=== PATIENT | male | born 1990 | race Caucasian/White ===

== ENCOUNTER 2017-10-29 19:29 | Inpatient (IN) | payer OTHER ==
[~2017-10-29] VITALS: Ht 182.9 cm; Wt 93.0 kg
[2017-10-29 19:45] VITALS: BP 114/66
[2017-10-29] MEDS ORDERED: NACL 0.9% 1,000 ML IV ONE (21:20)
[2017-10-29] MEDS ORDERED: metroNIDAZOLE 500 MG/NS PREMIX 100 ML IV ONE (21:20)
[2017-10-29] MEDS ORDERED: MORPHINE SULFATE 4 MG/ML SYR IVP ONE (21:20)
[2017-10-29 21:58] LABS: HEMATOCRIT 28.3 % (36-52); HEMOGLOBIN 8.8 g/dL (12.0-18.0); MEAN CORPUSCULAR HEMOGLOBIN 23 pg (27-31); MEAN CORPUSCULAR HGB CONC 31 g/dL (33-37); MEAN CORPUSCULAR VOLUME 72.7 fL (80-94); PLATELET COUNT (AUTO) 601 K/uL (140-450); RED CELL DISTRIBUTION WIDTH 15.6 % (11.6-13.7); WHITE BLOOD COUNT (AUTO) 16.7 K/uL (4.8-10.8)
[2017-10-29 22:02] LABS: ANION GAP 12.2 (8-16); CARBON DIOXIDE 25.2 mmol/L (21-32); CREATININE 0.7 mg/dL (0.7-1.3); POTASSIUM 4.4 mmol/L (3.5-5.1)
[2017-10-29 22:09] LABS: ALBUMIN 1.8 g/dL (3.4-5.0); TOTAL BILIRUBIN 0.2 mg/dL (0.0-1.0)
[2017-10-29 22:31] LABS: LYMPHOCYTES % (MANUAL) 11 % (20-46); MONOCYTES % (MANUAL) 2 % (5-12)
[2017-10-29] MEDS ORDERED: ONDANSETRON 4 MG/2 ML VIAL IVP PRN (22:40)
[2017-10-29] MEDS ORDERED: VANCOMYCIN PER PHARMACY MC PRN (22:40)
[2017-10-29] MEDS ORDERED: ACETAMINOPHEN 325 MG TAB PO PRN (22:40)
[2017-10-29] MEDS ORDERED: MORPHINE SULFATE 2 MG/ML SYR IVP PRN (22:40)
[2017-10-29] MEDS ORDERED: VANCOMYCIN 1GM/DEXT 5% PREMIX 200 ML IV SCH (23:25)
[2017-10-29 23:30] VITALS: BP 126/62
[2017-10-30] MEDS: MORPHINE SULFATE 2 MG/ML SYR IVP PRN ×5 (00:51→16:24)
[2017-10-30] MEDS ORDERED: VANCOMYCIN 1,000 MG VIAL ONE (03:42)
[2017-10-30 04:00] VITALS: BP 128/64
[2017-10-30] MEDS ORDERED: PIPERACILLIN/TAZOBACTAM 3.375 GM in DEXTROSE 5% 50 ML IV SCH (05:00)
[2017-10-30] MEDS: metroNIDAZOLE 500 MG/NS PREMIX 100 ML IV SCH ×3 (05:12→20:26)
[2017-10-30 06:47] LABS: BASOPHILS # (AUTO) 0.1 K/uL (0.00-0.22); BASOPHILS % (AUTO) 0.4 % (0.0-2.0); EOSINOPHILS # (AUTO) 0.1 K/uL (0-0.4); EOSINOPHILS % (AUTO) 0.8 % (0.0-4.0); HEMATOCRIT 23.5 % (36-52); LYMPHOCYTES # (AUTO) 1.8 K/uL (2.0-11.5); LYMPHOCYTES % (AUTO) 13.5 % (20.5-51.1); MEAN CORPUSCULAR HEMOGLOBIN 23 pg (27-31); MEAN CORPUSCULAR HGB CONC 31 g/dL (33-37); MEAN CORPUSCULAR VOLUME 72.3 fL (80-94); MONOCYTES # (AUTO) 0.8 K/uL (0.8-1.0); MONOCYTES % (AUTO) 6.1 % (1.7-9.3); NEUTROPHILS # (AUTO) 10.9 K/uL (1.8-7.7); NEUTROPHILS % (AUTO) 79.2 % (42.2-75.2); PLATELET COUNT (AUTO) 516 K/uL (140-450); RED BLOOD CELL COUNT(AUTO) 3.26 MIL/uL (4.20-6.10); RED CELL DISTRIBUTION WIDTH 15.4 % (11.6-13.7); WHITE BLOOD COUNT (AUTO) 13.7 K/uL (4.8-10.8)
[2017-10-30] MEDS: NACL 0.9% 1,000 ML IV SCH ×2 (07:00→14:11)
[2017-10-30 07:01] LABS: HEMOGLOBIN 7.3 g/dL (12.0-18.0)
[2017-10-30 08:00] VITALS: BP 130/72
[2017-10-30 08:43] LABS: ALBUMIN 1.4 g/dL (3.4-5.0); ANION GAP 11.3 (8-16); CARBON DIOXIDE 25.6 mmol/L (21-32); CREATININE 0.6 mg/dL (0.7-1.3); POTASSIUM 3.9 mmol/L (3.5-5.1); TOTAL BILIRUBIN 0.2 mg/dL (0.0-1.0)
[2017-10-30] MEDS ORDERED: ENOXAPARIN 40 MG/0.4 ML SYR SUBQ SCH (09:00)
[2017-10-30] MEDS ORDERED: LORazepam 0.5 MG TAB PO PRN (09:10)
[2017-10-30] MEDS: LEVOFLOXACIN 500 MG/D5W PREMIX 100 ML IV SCH (09:23)
[2017-10-30] MEDS: VANCOMYCIN 1,250 MG in NACL 0.9% 250 ML IV SCH ×2 (14:08→22:17)
[2017-10-30] MEDS: HYDROcodone/APAP 10/325 MG 1 TAB TAB PO PRN ×2 (14:09→20:26)
[2017-10-30 16:00] VITALS: BP 104/58
[2017-10-30] MEDS: MORPHINE SULFATE 4 MG/ML SYR IVP PRN ×2 (17:54→22:17)
[2017-10-30 19:08] LABS: PROTHROMBIN TIME 13.7 secs (10.8-13.4)
[2017-10-31] VITALS: BP 117/62
[2017-10-31] MEDS: MORPHINE SULFATE 4 MG/ML SYR IVP PRN ×5 (02:08→21:09)
[2017-10-31] MEDS: NACL 0.9% 1,000 ML IV SCH ×3 (03:00→23:37)
[2017-10-31] MEDS: metroNIDAZOLE 500 MG/NS PREMIX 100 ML IV SCH ×3 (04:45→21:08)
[2017-10-31] MEDS: VANCOMYCIN 1,250 MG in NACL 0.9% 250 ML IV SCH ×3 (05:56→22:40)
[2017-10-31 06:31] LABS: BASOPHILS # (AUTO) 0.1 K/uL (0.00-0.22); BASOPHILS % (AUTO) 0.8 % (0.0-2.0); EOSINOPHILS # (AUTO) 0.1 K/uL (0-0.4); EOSINOPHILS % (AUTO) 0.5 % (0.0-4.0); HEMATOCRIT 24.9 % (36-52); HEMOGLOBIN 7.8 g/dL (12.0-18.0); LYMPHOCYTES % (AUTO) 15.6 % (20.5-51.1); MEAN CORPUSCULAR HEMOGLOBIN 23 pg (27-31); MEAN CORPUSCULAR HGB CONC 31 g/dL (33-37); MEAN CORPUSCULAR VOLUME 72.1 fL (80-94); MONOCYTES # (AUTO) 0.7 K/uL (0.8-1.0); MONOCYTES % (AUTO) 5.3 % (1.7-9.3); NEUTROPHILS # (AUTO) 9.6 K/uL (1.8-7.7); NEUTROPHILS % (AUTO) 77.8 % (42.2-75.2); PLATELET COUNT (AUTO) 521 K/uL (140-450); RED BLOOD CELL COUNT(AUTO) 3.46 MIL/uL (4.20-6.10); RED CELL DISTRIBUTION WIDTH 15.2 % (11.6-13.7); WHITE BLOOD COUNT (AUTO) 12.5 K/uL (4.8-10.8)
[2017-10-31 07:28] LABS: ALBUMIN 1.4 g/dL (3.4-5.0); ANION GAP 10.9 (8-16); CREATININE 0.6 mg/dL (0.7-1.3); POTASSIUM 3.9 mmol/L (3.5-5.1); TOTAL BILIRUBIN 0.3 mg/dL (0.0-1.0)
[2017-10-31 08:00] VITALS: BP 119/68
[2017-10-31] MEDS: CITALOPRAM 20 MG TAB PO SCH (09:20)
[2017-10-31] MEDS: LEVOFLOXACIN 500 MG/D5W PREMIX 100 ML IV SCH (09:21)
[2017-10-31] MEDS ORDERED: PROPOFOL 200 MG/20 ML VIAL IV ONE (13:13)
[2017-10-31] MEDS ORDERED: SEVOFLURANE 250 ML BTL INH ONE (13:13)
[2017-10-31] MEDS ORDERED: LIDOCAINE 2% 100 MG/5 ML SYR IVP ONE (13:13)
[2017-10-31] MEDS ORDERED: ePHEDrine 50 MG/ML VIAL ONE (13:13)
[2017-10-31] MEDS ORDERED: MIDAZOLAM 2 MG/2 ML VIAL ONE (13:25)
[2017-10-31] MEDS ORDERED: fentaNYL 0.05 MG/ML VIAL ONE (13:25)
[2017-10-31] MEDS ORDERED: BUPIVACAINE-MPF 0.25% 30 ML VIAL INJ ONE (13:29)
[2017-10-31] MEDS ORDERED: HYDROmorphone 1 MG/ML AMP IVP PRN (14:00)
[2017-10-31] MEDS ORDERED: ONDANSETRON 4 MG/2 ML VIAL IVP PRN (14:00)
[2017-10-31] MEDS ORDERED: HYDROmorphone PFS 2 MG/ML SYR ONE (14:37)
[2017-10-31 16:00] VITALS: BP 125/58
[2017-10-31 18:01] VITALS: BP 120/61
[2017-10-31] MEDS: MORPHINE SULFATE 2 MG/ML SYR IVP PRN (18:48)
[2017-10-31 20:00] VITALS: BP 119/66
[2017-10-31] MEDS ORDERED: MORPHINE SULFATE 4 MG/ML SYR ONE (20:28)
[2017-10-31 22:00] VITALS: BP 126/59
[2017-10-31] MEDS ORDERED: VANCOMYCIN 1,000 MG VIAL ONE (22:04)
[2017-11-01] VITALS (9 sets, daily range): BP systolic 104–117; BP diastolic 49–65
[2017-11-01] MEDS: MORPHINE SULFATE 4 MG/ML SYR IVP PRN ×5 (01:03→20:45)
[2017-11-01] MEDS: metroNIDAZOLE 500 MG/NS PREMIX 100 ML IV SCH ×3 (04:13→20:45)
[2017-11-01 05:10] LABS: HEMATOCRIT 26.6 % (36-52); HEMOGLOBIN 8.3 g/dL (12.0-18.0); MEAN CORPUSCULAR HEMOGLOBIN 23 pg (27-31); MEAN CORPUSCULAR HGB CONC 31 g/dL (33-37); MEAN CORPUSCULAR VOLUME 73.6 fL (80-94); PLATELET COUNT (AUTO) 488 K/uL (140-450); RED BLOOD CELL COUNT(AUTO) 3.61 MIL/uL (4.20-6.10); RED CELL DISTRIBUTION WIDTH 16.8 % (11.6-13.7); WHITE BLOOD COUNT (AUTO) 13.4 K/uL (4.8-10.8)
[2017-11-01] MEDS ORDERED: VANCOMYCIN 500 MG VIAL ONE (05:31)
[2017-11-01] MEDS ORDERED: VANCOMYCIN 1,000 MG VIAL ONE (05:31)
[2017-11-01] MEDS: VANCOMYCIN 1,250 MG in NACL 0.9% 250 ML IV SCH ×3 (05:50→22:33)
[2017-11-01 06:42] LABS: ALBUMIN 1.4 g/dL (3.4-5.0); ANION GAP 13.1 (8-16); CARBON DIOXIDE 26.1 mmol/L (21-32); CREATININE 0.7 mg/dL (0.7-1.3); POTASSIUM 4.2 mmol/L (3.5-5.1)
[2017-11-01] MEDS: LEVOFLOXACIN 500 MG/D5W PREMIX 100 ML IV SCH (09:23)
[2017-11-01] MEDS: NACL 0.9% 1,000 ML IV SCH ×2 (09:29→19:00)
[2017-11-01] MEDS: CITALOPRAM 20 MG TAB PO SCH (09:29)
[2017-11-01] MEDS: MORPHINE SULFATE 5 MG/ML VIAL IVP PRN (12:08)
[2017-11-01] MEDS: CHLORHEXADINE GLUC 2% CLOTH TP SCH (15:00)
[2017-11-01 15:03] LABS: LYMPHOCYTES % (MANUAL) 6 % (20-46); MONOCYTES % (MANUAL) 4 % (5-12); PROMYELOCYTES % 1 % (0-0)
[2017-11-01] MEDS: MUPIROCIN 2% OINT 22 GM TUBE TP SCH (16:18)
[2017-11-02] VITALS: BP 111/57
[2017-11-02] MEDS: MORPHINE SULFATE 5 MG/ML VIAL IVP PRN ×3 (01:34→19:57)
[2017-11-02 04:00] VITALS: BP 108/65
[2017-11-02] MEDS: metroNIDAZOLE 500 MG/NS PREMIX 100 ML IV SCH ×3 (04:32→21:21)
[2017-11-02] MEDS: NACL 0.9% 1,000 ML IV SCH ×2 (05:00→15:20)
[2017-11-02] MEDS: MORPHINE SULFATE 4 MG/ML SYR IVP PRN ×4 (05:34→17:48)
[2017-11-02] MEDS: VANCOMYCIN 1,250 MG in NACL 0.9% 250 ML IV SCH (06:35)
[2017-11-02 07:07] LABS: BASOPHILS # (AUTO) 0.1 K/uL (0.00-0.22); BASOPHILS % (AUTO) 0.7 % (0.0-2.0); EOSINOPHILS # (AUTO) 0.1 K/uL (0-0.4); EOSINOPHILS % (AUTO) 0.6 % (0.0-4.0); HEMATOCRIT 22.8 % (36-52); LYMPHOCYTES # (AUTO) 1.2 K/uL (2.0-11.5); LYMPHOCYTES % (AUTO) 13.8 % (20.5-51.1); MEAN CORPUSCULAR HEMOGLOBIN 23 pg (27-31); MEAN CORPUSCULAR HGB CONC 32 g/dL (33-37); MEAN CORPUSCULAR VOLUME 74.1 fL (80-94); MONOCYTES # (AUTO) 0.6 K/uL (0.8-1.0); MONOCYTES % (AUTO) 6.8 % (1.7-9.3); NEUTROPHILS # (AUTO) 6.5 K/uL (1.8-7.7); NEUTROPHILS % (AUTO) 78.1 % (42.2-75.2); PLATELET COUNT (AUTO) 364 K/uL (140-450); RED BLOOD CELL COUNT(AUTO) 3.08 MIL/uL (4.20-6.10); RED CELL DISTRIBUTION WIDTH 17.3 % (11.6-13.7); WHITE BLOOD COUNT (AUTO) 8.5 K/uL (4.8-10.8)
[2017-11-02 07:17] LABS: HEMOGLOBIN 7.2 g/dL (12.0-18.0)
[2017-11-02 07:37] LABS: ALBUMIN 1.2 g/dL (3.4-5.0); ANION GAP 11.7 (8-16); CREATININE 0.6 mg/dL (0.7-1.3); POTASSIUM 3.7 mmol/L (3.5-5.1); TOTAL BILIRUBIN 0.2 mg/dL (0.0-1.0)
[2017-11-02 08:00] VITALS: BP 109/56
[2017-11-02] MEDS: LEVOFLOXACIN 500 MG/D5W PREMIX 100 ML IV SCH (08:07)
[2017-11-02] MEDS: HYDROcodone/APAP 10/325 MG 1 TAB TAB PO PRN (08:07)
[2017-11-02] MEDS: CITALOPRAM 20 MG TAB PO SCH (08:08)
[2017-11-02 12:00] VITALS: BP 108/58
[2017-11-02] MEDS: WOUND CARE PREPARATION 178 ML SPR TP SCH ×2 (13:00→21:00)
[2017-11-02] MEDS: VANCOMYCIN 1,500 MG in DEXTROSE 5% 500 ML IV SCH ×2 (14:13→22:55)
[2017-11-02] MEDS ORDERED: MORPHINE SULFATE 5 MG/ML VIAL ONE ×2 (14:36→19:47)
[2017-11-02] MEDS: MUPIROCIN 2% OINT 22 GM TUBE TP SCH (15:45)
[2017-11-02] MEDS: CHLORHEXADINE GLUC 2% CLOTH TP SCH (15:45)
[2017-11-02 16:00] VITALS: BP 99/54
[2017-11-02 20:00] VITALS: BP 94/61
[2017-11-03] VITALS: BP 120/61
[2017-11-03 00:20] LABS: APPEARANCE,URINE CLEAR (CLEAR); BILIRUBIN,URINE NEGATIVE (NEGATIVE); BLOOD, URINE NEGATIVE (NEGATIVE); COLOR,URINE YELLOW (YELLOW); LEUKOCYTE ESTERASE ,URINE NEGATIVE (NEGATIVE); NITRITE, URINE NEGATIVE (NEGATIVE); UGLUCOSE NEGATIVE (NEGATIVE)
[2017-11-03] MEDS: MORPHINE SULFATE 4 MG/ML SYR IVP PRN ×5 (00:34→23:51)
[2017-11-03 00:45] LABS: RBC,URINE 0-5 (RARE) /HPF (0-5); WBC,URINE 0-5 (RARE) /HPF (0-5)
[2017-11-03] MEDS: NACL 0.9% 1,000 ML IV SCH ×3 (01:00→21:00)
[2017-11-03] MEDS ORDERED: MORPHINE SULFATE 5 MG/ML VIAL ONE (03:11)
[2017-11-03] MEDS: MORPHINE SULFATE 5 MG/ML VIAL IVP PRN ×2 (03:20→04:17)
[2017-11-03 04:00] VITALS: BP 112/51
[2017-11-03] MEDS: metroNIDAZOLE 500 MG/NS PREMIX 100 ML IV SCH ×3 (05:35→20:37)
[2017-11-03] MEDS: VANCOMYCIN 1,500 MG in DEXTROSE 5% 500 ML IV SCH ×3 (06:18→23:26)
[2017-11-03 07:38] LABS: BASOPHILS # (AUTO) 0.1 K/uL (0.00-0.22); BASOPHILS % (AUTO) 1.3 % (0.0-2.0); EOSINOPHILS # (AUTO) 0.1 K/uL (0-0.4); EOSINOPHILS % (AUTO) 1.6 % (0.0-4.0); HEMATOCRIT 25.7 % (36-52); HEMOGLOBIN 8.1 g/dL (12.0-18.0); LYMPHOCYTES # (AUTO) 1.3 K/uL (2.0-11.5); LYMPHOCYTES % (AUTO) 15.4 % (20.5-51.1); MEAN CORPUSCULAR HEMOGLOBIN 24 pg (27-31); MEAN CORPUSCULAR HGB CONC 31 g/dL (33-37); MONOCYTES # (AUTO) 0.5 K/uL (0.8-1.0); MONOCYTES % (AUTO) 6.2 % (1.7-9.3); NEUTROPHILS # (AUTO) 6.5 K/uL (1.8-7.7); NEUTROPHILS % (AUTO) 75.5 % (42.2-75.2); PLATELET COUNT (AUTO) 341 K/uL (140-450); RED BLOOD CELL COUNT(AUTO) 3.38 MIL/uL (4.20-6.10); RED CELL DISTRIBUTION WIDTH 18.6 % (11.6-13.7); WHITE BLOOD COUNT (AUTO) 8.5 K/uL (4.8-10.8)
[2017-11-03 07:48] LABS: ALBUMIN 1.2 g/dL (3.4-5.0); ANION GAP 9.3 (8-16); CARBON DIOXIDE 27.6 mmol/L (21-32); CREATININE 0.5 mg/dL (0.7-1.3); POTASSIUM 3.9 mmol/L (3.5-5.1); TOTAL BILIRUBIN 0.3 mg/dL (0.0-1.0)
[2017-11-03 08:00] VITALS: BP 109/54
[2017-11-03] MEDS: CITALOPRAM 20 MG TAB PO SCH (08:48)
[2017-11-03] MEDS: LEVOFLOXACIN 500 MG/D5W PREMIX 100 ML IV SCH (08:48)
[2017-11-03 12:00] VITALS: BP 112/64
[2017-11-03] MEDS ORDERED: metroNIDAZOLE 500 MG/NS PREMIX 100 ML IV SCH (13:00)
[2017-11-03] MEDS ORDERED: DOCUSATE SODIUM 100 MG GELCAP PO SCH (13:30)
[2017-11-03] MEDS ORDERED: VANCOMYCIN PER PHARMACY MC PRN (14:00)
[2017-11-03] MEDS: WOUND CARE PREPARATION 178 ML SPR TP SCH ×2 (14:30→20:00)
[2017-11-03] MEDS: MUPIROCIN 2% OINT 22 GM TUBE TP SCH (14:56)
[2017-11-03] MEDS: CHLORHEXADINE GLUC 2% CLOTH TP SCH (15:08)
[2017-11-03 16:00] VITALS: BP 108/61
[2017-11-03] MEDS: HYDROcodone/APAP 10/325 MG 1 TAB TAB PO PRN (16:05)
[2017-11-03] MEDS: DOCUSATE SODIUM 100 MG GELCAP PO SCH (20:37)
[2017-11-03 23:50] VITALS: BP 109/61
[2017-11-04 04:15] VITALS: BP 101/45
[2017-11-04] MEDS: MORPHINE SULFATE 4 MG/ML SYR IVP PRN ×4 (04:16→19:41)
[2017-11-04] MEDS: metroNIDAZOLE 500 MG/NS PREMIX 100 ML IV SCH ×3 (04:29→21:09)
[2017-11-04] MEDS: VANCOMYCIN 1,500 MG in DEXTROSE 5% 500 ML IV SCH ×3 (06:53→23:45)
[2017-11-04] MEDS: NACL 0.9% 1,000 ML IV SCH ×2 (07:00→19:30)
[2017-11-04 07:05] LABS: BASOPHILS # (AUTO) 0.1 K/uL (0.00-0.22); BASOPHILS % (AUTO) 1.3 % (0.0-2.0); EOSINOPHILS # (AUTO) 0.1 K/uL (0-0.4); EOSINOPHILS % (AUTO) 1.3 % (0.0-4.0); HEMATOCRIT 29.9 % (36-52); HEMOGLOBIN 9.5 g/dL (12.0-18.0); LYMPHOCYTES # (AUTO) 1.4 K/uL (2.0-11.5); LYMPHOCYTES % (AUTO) 13.5 % (20.5-51.1); MEAN CORPUSCULAR HEMOGLOBIN 24 pg (27-31); MEAN CORPUSCULAR HGB CONC 32 g/dL (33-37); MEAN CORPUSCULAR VOLUME 75.1 fL (80-94); MONOCYTES # (AUTO) 0.5 K/uL (0.8-1.0); MONOCYTES % (AUTO) 4.9 % (1.7-9.3); NEUTROPHILS # (AUTO) 8.6 K/uL (1.8-7.7); PLATELET COUNT (AUTO) 394 K/uL (140-450); RED BLOOD CELL COUNT(AUTO) 3.97 MIL/uL (4.20-6.10); RED CELL DISTRIBUTION WIDTH 18.2 % (11.6-13.7); WHITE BLOOD COUNT (AUTO) 10.7 K/uL (4.8-10.8)
[2017-11-04 07:26] LABS: ANION GAP 10.5 (8-16); CARBON DIOXIDE 26.5 mmol/L (21-32); CREATININE 0.6 mg/dL (0.7-1.3)
[2017-11-04 08:00] VITALS: BP 101/55
[2017-11-04] MEDS: DOCUSATE SODIUM 100 MG GELCAP PO SCH ×2 (09:00→21:00)
[2017-11-04] MEDS ORDERED: LEVOFLOXACIN 500 MG/D5W PREMIX 100 ML IV SCH ×2 (09:00)
[2017-11-04] MEDS: CITALOPRAM 20 MG TAB PO SCH (09:24)
[2017-11-04] MEDS: LEVOFLOXACIN 500 MG/D5W PREMIX 100 ML IV SCH (10:40)
[2017-11-04 12:00] VITALS: BP 107/57
[2017-11-04] MEDS: WOUND CARE PREPARATION 178 ML SPR TP SCH ×2 (13:00→20:00)
[2017-11-04] MEDS: CHLORHEXADINE GLUC 2% CLOTH TP SCH (15:00)
[2017-11-04] MEDS: MUPIROCIN 2% OINT 22 GM TUBE TP SCH (15:44)
[2017-11-04 16:00] VITALS: BP 101/54
[2017-11-04 20:00] VITALS: BP 106/53
[2017-11-05] VITALS (7 sets, daily range): BP systolic 98–128; BP diastolic 56–72
[2017-11-05] MEDS: MORPHINE SULFATE 4 MG/ML SYR IVP PRN ×4 (01:14→20:37)
[2017-11-05] MEDS: NACL 0.9% 1,000 ML IV SCH ×3 (03:00→23:00)
[2017-11-05] MEDS: metroNIDAZOLE 500 MG/NS PREMIX 100 ML IV SCH ×3 (04:31→20:36)
[2017-11-05] MEDS: VANCOMYCIN 1,500 MG in DEXTROSE 5% 500 ML IV SCH (06:39)
[2017-11-05 08:13] LABS: EOSINOPHILS # (AUTO) 0.1 K/uL (0-0.4); HEMATOCRIT 29.1 % (36-52); HEMOGLOBIN 9.3 g/dL (12.0-18.0); LYMPHOCYTES # (AUTO) 1.5 K/uL (2.0-11.5); MEAN CORPUSCULAR HEMOGLOBIN 24 pg (27-31); MEAN CORPUSCULAR HGB CONC 32 g/dL (33-37); MEAN CORPUSCULAR VOLUME 75.1 fL (80-94); MONOCYTES # (AUTO) 0.6 K/uL (0.8-1.0); NEUTROPHILS # (AUTO) 8.1 K/uL (1.8-7.7); PLATELET COUNT (AUTO) 386 K/uL (140-450); RED BLOOD CELL COUNT(AUTO) 3.87 MIL/uL (4.20-6.10); WHITE BLOOD COUNT (AUTO) 10.4 K/uL (4.8-10.8)
[2017-11-05 08:18] LABS: BASOPHILS % (AUTO) 0.3 % (0.0-2.0); EOSINOPHILS % (AUTO) 1.1 % (0.0-4.0); LYMPHOCYTES % (AUTO) 14.8 % (20.5-51.1); MONOCYTES % (AUTO) 5.7 % (1.7-9.3); NEUTROPHILS % (AUTO) 78.1 % (42.2-75.2)
[2017-11-05] MEDS: DOCUSATE SODIUM 100 MG GELCAP PO SCH ×2 (09:00→20:46)
[2017-11-05] MEDS: LEVOFLOXACIN 500 MG/D5W PREMIX 100 ML IV SCH (09:31)
[2017-11-05 10:04] LABS: ANION GAP 9.6 (8-16); CARBON DIOXIDE 27.2 mmol/L (21-32); CREATININE 0.6 mg/dL (0.7-1.3); POTASSIUM 3.8 mmol/L (3.5-5.1)
[2017-11-05] MEDS: MORPHINE SULFATE 5 MG/ML VIAL IVP PRN ×2 (10:11→17:04)
[2017-11-05] MEDS: WOUND CARE PREPARATION 178 ML SPR TP SCH ×2 (11:00→20:42)
[2017-11-05] MEDS ORDERED: KETAMINE 500 MG/5 ML VIAL ONE (11:50)
[2017-11-05] MEDS ORDERED: MIDAZOLAM 2 MG/2 ML VIAL ONE (11:50)
[2017-11-05] MEDS ORDERED: ONDANSETRON 4 MG/2 ML VIAL IVP PRN (12:10)
[2017-11-05] MEDS ORDERED: HYDROmorphone PFS 2 MG/ML SYR IVP PRN (12:10)
[2017-11-05] MEDS: CITALOPRAM 20 MG TAB PO SCH (14:07)
[2017-11-05] MEDS: MUPIROCIN 2% OINT 22 GM TUBE TP SCH (14:21)
[2017-11-05] MEDS: CHLORHEXADINE GLUC 2% CLOTH TP SCH (15:20)
[2017-11-05] MEDS: HYDROcodone/APAP 10/325 MG 1 TAB TAB PO PRN ×2 (15:24→22:04)
[2017-11-05] MEDS ORDERED: VANCOMYCIN 1,250 MG in DEXTROSE 5% 250 ML IV SCH (16:00)
[2017-11-05] MEDS: VANCOMYCIN 1,250 MG in NACL 0.9% 250 ML IV SCH (17:06)
[2017-11-06] VITALS: BP 110/65
[2017-11-06] MEDS: MORPHINE SULFATE 4 MG/ML SYR IVP PRN ×6 (00:18→20:40)
[2017-11-06] MEDS: VANCOMYCIN 1,250 MG in NACL 0.9% 250 ML IV SCH ×4 (00:18→23:58)
[2017-11-06 04:00] VITALS: BP 103/63
[2017-11-06] MEDS: metroNIDAZOLE 500 MG/NS PREMIX 100 ML IV SCH ×3 (05:01→20:43)
[2017-11-06 06:41] LABS: BASOPHILS % (AUTO) 0.3 % (0.0-2.0); EOSINOPHILS # (AUTO) 0.1 K/uL (0-0.4); HEMATOCRIT 29.5 % (36-52); HEMOGLOBIN 9.3 g/dL (12.0-18.0); LYMPHOCYTES # (AUTO) 1.5 K/uL (2.0-11.5); LYMPHOCYTES % (AUTO) 14.5 % (20.5-51.1); MEAN CORPUSCULAR HEMOGLOBIN 24 pg (27-31); MEAN CORPUSCULAR HGB CONC 32 g/dL (33-37); MONOCYTES # (AUTO) 0.6 K/uL (0.8-1.0); MONOCYTES % (AUTO) 5.6 % (1.7-9.3); NEUTROPHILS # (AUTO) 8.3 K/uL (1.8-7.7); NEUTROPHILS % (AUTO) 78.6 % (42.2-75.2); PLATELET COUNT (AUTO) 401 K/uL (140-450); RED BLOOD CELL COUNT(AUTO) 3.88 MIL/uL (4.20-6.10); RED CELL DISTRIBUTION WIDTH 19.1 % (11.6-13.7); WHITE BLOOD COUNT (AUTO) 10.5 K/uL (4.8-10.8)
[2017-11-06 07:22] LABS: ANION GAP 10.4 (8-16); CARBON DIOXIDE 25.7 mmol/L (21-32); CREATININE 0.6 mg/dL (0.7-1.3); POTASSIUM 4.1 mmol/L (3.5-5.1)
[2017-11-06 08:00] VITALS: BP 100/67
[2017-11-06] MEDS: NACL 0.9% 1,000 ML IV SCH ×2 (09:00→19:32)
[2017-11-06] MEDS: DOCUSATE SODIUM 100 MG GELCAP PO SCH ×2 (09:00→20:45)
[2017-11-06] MEDS: CITALOPRAM 20 MG TAB PO SCH (10:29)
[2017-11-06] MEDS: LEVOFLOXACIN 500 MG/D5W PREMIX 100 ML IV SCH (10:30)
[2017-11-06 12:00] VITALS: BP 111/70
[2017-11-06 16:00] VITALS: BP 113/58
[2017-11-06] MEDS: WOUND CARE PREPARATION 178 ML SPR TP SCH ×2 (17:00→20:43)
[2017-11-06 20:00] VITALS: BP 104/59
[2017-11-06] MEDS: HYDROcodone/APAP 10/325 MG 1 TAB TAB PO PRN (21:59)
[2017-11-07] VITALS: BP 121/70
[2017-11-07] MEDS: MORPHINE SULFATE 4 MG/ML SYR IVP PRN ×6 (00:46→23:36)
[2017-11-07 05:15] VITALS: BP 98/59
[2017-11-07 06:30] VITALS: BP 100/58
[2017-11-07 07:00] LABS: BASOPHILS % (AUTO) 0.5 % (0.0-2.0); EOSINOPHILS # (AUTO) 0.1 K/uL (0-0.4); EOSINOPHILS % (AUTO) 1.1 % (0.0-4.0); HEMATOCRIT 27.2 % (36-52); HEMOGLOBIN 8.8 g/dL (12.0-18.0); LYMPHOCYTES # (AUTO) 1.5 K/uL (2.0-11.5); LYMPHOCYTES % (AUTO) 15.8 % (20.5-51.1); MEAN CORPUSCULAR HEMOGLOBIN 25 pg (27-31); MEAN CORPUSCULAR HGB CONC 33 g/dL (33-37); MEAN CORPUSCULAR VOLUME 75.4 fL (80-94); MONOCYTES # (AUTO) 0.5 K/uL (0.8-1.0); MONOCYTES % (AUTO) 4.9 % (1.7-9.3); NEUTROPHILS # (AUTO) 7.5 K/uL (1.8-7.7); NEUTROPHILS % (AUTO) 77.7 % (42.2-75.2); PLATELET COUNT (AUTO) 378 K/uL (140-450); WHITE BLOOD COUNT (AUTO) 9.7 K/uL (4.8-10.8)
[2017-11-07 08:00] VITALS: BP 113/70
[2017-11-07] MEDS: VANCOMYCIN 1,250 MG in NACL 0.9% 250 ML IV SCH ×3 (08:30→23:27)
[2017-11-07] MEDS: metroNIDAZOLE 500 MG TAB PO SCH ×3 (08:31→16:21)
[2017-11-07] MEDS: CITALOPRAM 20 MG TAB PO SCH (08:31)
[2017-11-07] MEDS: DOCUSATE SODIUM 100 MG GELCAP PO SCH ×2 (08:32→21:00)
[2017-11-07] MEDS ORDERED: metroNIDAZOLE 500 MG TAB PO SCH (09:00)
[2017-11-07 12:00] VITALS: BP 120/69
[2017-11-07] MEDS: NACL 0.9% 1,000 ML IV SCH ×2 (12:38→15:00)
[2017-11-07] MEDS: WOUND CARE PREPARATION 178 ML SPR TP SCH ×2 (12:51→20:00)
[2017-11-07] MEDS ORDERED: VANCOMYCIN PER PHARMACY MC PRN (14:35)
[2017-11-07 16:00] VITALS: BP 116/67
[2017-11-08] VITALS: BP 118/61
[2017-11-08] MEDS: NACL 0.9% 1,000 ML IV SCH ×3 (00:04→21:00)
[2017-11-08] MEDS: MORPHINE SULFATE 4 MG/ML SYR IVP PRN ×6 (03:16→23:49)
[2017-11-08] MEDS ORDERED: LEVOFLOXACIN 500 MG TAB PO SCH (09:00)
[2017-11-08] MEDS: DOCUSATE SODIUM 100 MG GELCAP PO SCH ×2 (09:00→21:00)
[2017-11-08] MEDS: CITALOPRAM 20 MG TAB PO SCH (10:02)
[2017-11-08] MEDS: VANCOMYCIN 1,250 MG in NACL 0.9% 250 ML IV SCH ×3 (10:02→23:49)
[2017-11-08] MEDS: metroNIDAZOLE 500 MG TAB PO SCH ×3 (10:03→17:03)
[2017-11-08 13:00] VITALS: BP 113/61
[2017-11-08] MEDS: WOUND CARE PREPARATION 178 ML SPR TP SCH ×2 (13:00→21:07)
[2017-11-08 17:07] VITALS: BP 114/63
[2017-11-08 23:03] VITALS: BP 106/55
[2017-11-09 04:02] VITALS: BP 107/44
[2017-11-09] MEDS: MORPHINE SULFATE 4 MG/ML SYR IVP PRN ×4 (04:04→21:51)
[2017-11-09] MEDS: NACL 0.9% 1,000 ML IV SCH ×3 (04:38→17:18)
[2017-11-09] MEDS: HYDROcodone/APAP 10/325 MG 1 TAB TAB PO PRN ×2 (05:40→16:01)
[2017-11-09 08:00] VITALS: BP 120/75
[2017-11-09] MEDS: metroNIDAZOLE 500 MG TAB PO SCH ×3 (08:50→17:29)
[2017-11-09] MEDS: CITALOPRAM 20 MG TAB PO SCH (08:51)
[2017-11-09] MEDS: DOCUSATE SODIUM 100 MG GELCAP PO SCH ×2 (08:54→20:40)
[2017-11-09 10:16] LABS: ANION GAP 9.3 (8-16); CARBON DIOXIDE 28.2 mmol/L (21-32); CREATININE 0.6 mg/dL (0.7-1.3); POTASSIUM 3.5 mmol/L (3.5-5.1)
[2017-11-09] MEDS: VANCOMYCIN 1,250 MG in NACL 0.9% 250 ML IV SCH ×3 (11:05→23:52)
[2017-11-09] MEDS: WOUND CARE PREPARATION 178 ML SPR TP SCH ×2 (14:07→20:40)
[2017-11-09 16:00] VITALS: BP 116/64
[2017-11-09 21:39] VITALS: BP 117/63
[2017-11-10 00:02] VITALS: BP 115/56
[2017-11-10] MEDS: MORPHINE SULFATE 4 MG/ML SYR IVP PRN ×5 (00:31→20:13)
[2017-11-10 01:51] VITALS: BP 110/56
[2017-11-10] MEDS: NACL 0.9% 1,000 ML IV SCH ×3 (03:49→23:00)
[2017-11-10 04:03] VITALS: BP 106/55
[2017-11-10 08:00] VITALS: BP 120/68
[2017-11-10] MEDS: DOCUSATE SODIUM 100 MG GELCAP PO SCH ×2 (09:00→21:00)
[2017-11-10] MEDS: VANCOMYCIN 1,250 MG in NACL 0.9% 250 ML IV SCH ×2 (09:44→16:12)
[2017-11-10] MEDS: metroNIDAZOLE 500 MG TAB PO SCH ×3 (09:45→17:16)
[2017-11-10] MEDS: CITALOPRAM 20 MG TAB PO SCH (09:45)
[2017-11-10] MEDS: HYDROcodone/APAP 10/325 MG 1 TAB TAB PO PRN ×2 (13:03→22:36)
[2017-11-10] MEDS: WOUND CARE PREPARATION 178 ML SPR TP SCH ×2 (15:29→20:43)
[2017-11-10 16:00] VITALS: BP 110/56
[2017-11-10] MEDS ORDERED: VANCOMYCIN PER PHARMACY MC PRN (16:55)
[2017-11-10 17:53] LABS: APPEARANCE,URINE CLEAR (CLEAR); BILIRUBIN,URINE NEGATIVE (NEGATIVE); BLOOD, URINE NEGATIVE (NEGATIVE); COLOR,URINE YELLOW (YELLOW); LEUKOCYTE ESTERASE ,URINE NEGATIVE (NEGATIVE); NITRITE, URINE NEGATIVE (NEGATIVE); UGLUCOSE NEGATIVE (NEGATIVE)
[2017-11-10 18:02] LABS: RBC,URINE 0-5 (RARE) /HPF (0-5); WBC,URINE 0-5 (RARE) /HPF (0-5)
[2017-11-10 20:13] VITALS: BP 125/44
[2017-11-10] MEDS ORDERED: CEFEPIME 1,000 MG VIAL ONE (21:47)
[2017-11-10] MEDS: CEFEPIME 1,000 MG in DEXTROSE 5% 50 ML IV SCH (22:00)
[2017-11-11] MEDS: VANCOMYCIN 1,250 MG in NACL 0.9% 250 ML IV SCH ×3 (00:22→17:24)
[2017-11-11] MEDS: MORPHINE SULFATE 4 MG/ML SYR IVP PRN ×5 (00:22→17:23)
[2017-11-11 00:40] VITALS: BP 97/46
[2017-11-11 06:59] LABS: BASOPHILS # (AUTO) 0.1 K/uL (0.00-0.22); BASOPHILS % (AUTO) 1.6 % (0.0-2.0); EOSINOPHILS % (AUTO) 0.3 % (0.0-4.0); HEMATOCRIT 30.2 % (36-52); HEMOGLOBIN 9.5 g/dL (12.0-18.0); LYMPHOCYTES # (AUTO) 0.9 K/uL (2.0-11.5); LYMPHOCYTES % (AUTO) 22.1 % (20.5-51.1); MEAN CORPUSCULAR HEMOGLOBIN 24 pg (27-31); MEAN CORPUSCULAR HGB CONC 32 g/dL (33-37); MEAN CORPUSCULAR VOLUME 75.5 fL (80-94); MONOCYTES # (AUTO) 0.3 K/uL (0.8-1.0); MONOCYTES % (AUTO) 8.2 % (1.7-9.3); NEUTROPHILS # (AUTO) 2.7 K/uL (1.8-7.7); NEUTROPHILS % (AUTO) 67.8 % (42.2-75.2); PLATELET COUNT (AUTO) 330 K/uL (140-450); RED BLOOD CELL COUNT(AUTO) 3.99 MIL/uL (4.20-6.10); RED CELL DISTRIBUTION WIDTH 20.5 % (11.6-13.7); WHITE BLOOD COUNT (AUTO) 3.9 K/uL (4.8-10.8)
[2017-11-11 07:25] LABS: ANION GAP 10.1 (8-16); CARBON DIOXIDE 25.7 mmol/L (21-32); CREATININE 0.6 mg/dL (0.7-1.3); POTASSIUM 3.8 mmol/L (3.5-5.1)
[2017-11-11 08:00] VITALS: BP 110/54
[2017-11-11] MEDS: CITALOPRAM 20 MG TAB PO SCH (08:52)
[2017-11-11] MEDS: metroNIDAZOLE 500 MG TAB PO SCH ×3 (08:52→17:40)
[2017-11-11] MEDS: DOCUSATE SODIUM 100 MG GELCAP PO SCH ×2 (09:00→21:50)
[2017-11-11] MEDS: NACL 0.9% 1,000 ML IV SCH ×2 (09:02→19:00)
[2017-11-11] MEDS: CEFEPIME 1,000 MG in DEXTROSE 5% 50 ML IV SCH ×2 (10:03→21:50)
[2017-11-11] MEDS: HYDROcodone/APAP 10/325 MG 1 TAB TAB PO PRN (14:11)
[2017-11-11] MEDS: WOUND CARE PREPARATION 178 ML SPR TP SCH ×2 (15:00→22:30)
[2017-11-11 16:35] VITALS: BP 110/71
[2017-11-11 20:12] VITALS: BP 104/62
[2017-11-11] MEDS ORDERED: CEFEPIME 1,000 MG VIAL ONE (21:19)
[2017-11-12] MEDS: VANCOMYCIN 1,250 MG in NACL 0.9% 250 ML IV SCH ×3 (00:41→17:10)
[2017-11-12] MEDS: MORPHINE SULFATE 4 MG/ML SYR IVP PRN ×6 (01:59→21:00)
[2017-11-12] MEDS: NACL 0.9% 1,000 ML IV SCH ×3 (05:00→15:00)
[2017-11-12 06:45] LABS: BASOPHILS % (AUTO) 0.6 % (0.0-2.0); EOSINOPHILS % (AUTO) 0.4 % (0.0-4.0); HEMATOCRIT 30.4 % (36-52); HEMOGLOBIN 9.6 g/dL (12.0-18.0); LYMPHOCYTES % (AUTO) 22.5 % (20.5-51.1); MEAN CORPUSCULAR HEMOGLOBIN 24 pg (27-31); MEAN CORPUSCULAR HGB CONC 32 g/dL (33-37); MEAN CORPUSCULAR VOLUME 75.5 fL (80-94); MONOCYTES # (AUTO) 0.4 K/uL (0.8-1.0); MONOCYTES % (AUTO) 8.4 % (1.7-9.3); NEUTROPHILS # (AUTO) 2.9 K/uL (1.8-7.7); NEUTROPHILS % (AUTO) 68.1 % (42.2-75.2); PLATELET COUNT (AUTO) 307 K/uL (140-450); RED BLOOD CELL COUNT(AUTO) 4.02 MIL/uL (4.20-6.10); RED CELL DISTRIBUTION WIDTH 20.3 % (11.6-13.7); WHITE BLOOD COUNT (AUTO) 4.3 K/uL (4.8-10.8)
[2017-11-12 07:14] LABS: ANION GAP 10.8 (8-16); CARBON DIOXIDE 26.3 mmol/L (21-32); CREATININE 0.6 mg/dL (0.7-1.3); POTASSIUM 4.1 mmol/L (3.5-5.1)
[2017-11-12 08:00] VITALS: BP 123/63
[2017-11-12] MEDS: DOCUSATE SODIUM 100 MG GELCAP PO SCH ×2 (09:00→20:51)
[2017-11-12] MEDS: CITALOPRAM 20 MG TAB PO SCH (09:57)
[2017-11-12] MEDS: metroNIDAZOLE 500 MG TAB PO SCH ×3 (09:57→17:10)
[2017-11-12] MEDS: CEFEPIME 1,000 MG in DEXTROSE 5% 50 ML IV SCH ×2 (09:58→20:47)
[2017-11-12] MEDS ORDERED: BUPIVACAINE-MPF 0.25% 30 ML VIAL INJ ONE (10:52)
[2017-11-12] MEDS ORDERED: fentaNYL 0.05 MG/ML VIAL ONE (10:53)
[2017-11-12] MEDS ORDERED: MIDAZOLAM 2 MG/2 ML VIAL ONE (10:53)
[2017-11-12] MEDS ORDERED: MEPERIDINE 50 MG/ML SYR ONE ×2 (10:54→11:39)
[2017-11-12] MEDS ORDERED: diphenhydrAMINE 50 MG/ML VIAL IVP PRN (11:35)
[2017-11-12] MEDS ORDERED: MEPERIDINE 25 MG/ML SYR IVP PRN (11:35)
[2017-11-12] MEDS ORDERED: ONDANSETRON 4 MG/2 ML VIAL IVP PRN (11:35)
[2017-11-12] MEDS ORDERED: MEPERIDINE 25 MG/ML SYR ONE ×2 (12:04→12:17)
[2017-11-12] MEDS: WOUND CARE PREPARATION 178 ML SPR TP SCH ×2 (13:00→20:48)
[2017-11-12] MEDS: HYDROcodone/APAP 10/325 MG 1 TAB TAB PO PRN (15:24)
[2017-11-12 16:00] VITALS: BP 111/63
[2017-11-12 20:45] VITALS: BP 113/62
[2017-11-13] MEDS: VANCOMYCIN 1,250 MG in NACL 0.9% 250 ML IV SCH (00:35)
[2017-11-13] MEDS: NACL 0.9% 1,000 ML IV SCH ×5 (00:35→13:50)
[2017-11-13] MEDS: MORPHINE SULFATE 4 MG/ML SYR IVP PRN ×5 (00:48→17:10)
[2017-11-13] MEDS: HYDROcodone/APAP 10/325 MG 1 TAB TAB PO PRN ×2 (04:45→15:24)
[2017-11-13] MEDS: CITALOPRAM 20 MG TAB PO SCH (09:59)
[2017-11-13] MEDS: metroNIDAZOLE 500 MG TAB PO SCH ×2 (09:59→14:30)
[2017-11-13] MEDS: DOCUSATE SODIUM 100 MG GELCAP PO SCH (10:02)
[2017-11-13] MEDS: CEFEPIME 1,000 MG in DEXTROSE 5% 50 ML IV SCH (10:02)
[2017-11-13 11:29] VITALS: BP 135/65
[2017-11-13] MEDS ORDERED: VANCOMYCIN 1GM/DEXT 5% PREMIX 200 ML IV SCH (12:00)
[2017-11-13] MEDS: WOUND CARE PREPARATION 178 ML SPR TP SCH (13:00)
[2017-11-14] MEDS ORDERED: WOUND CARE PREPARATION 178 ML SPR TP SCH (13:00)
== END 2017-11-13 18:40 | DRG 710 ==
LOC: MED 19:29 → MTU 22:43 → MIC 10-31 15:30 → MTU 11-01 18:45
PROVIDERS: ADMIT Hospitalist; ATTEND Hospitalist
PROC: 0JBF0ZZ Excision of Left Upper Arm Subcutaneous Tissue and Fascia, Open Approach (ICD-10-PCS; 2017-10-31)
PROC: 0JBF0ZZ Excision of Left Upper Arm Subcutaneous Tissue and Fascia, Open Approach (ICD-10-PCS; 2017-10-31)
PROC: 0JBD0ZZ Excision of Right Upper Arm Subcutaneous Tissue and Fascia, Open Approach (ICD-10-PCS; 2017-10-31)
PROC: 0JBD0ZZ Excision of Right Upper Arm Subcutaneous Tissue and Fascia, Open Approach (ICD-10-PCS; 2017-10-31)
PROC: 0JBC0ZZ Excision of Pelvic Region Subcutaneous Tissue and Fascia, Open Approach (ICD-10-PCS; 2017-10-31)
PROC: 30233N1 Transfusion of Nonautologous Red Blood Cells into Peripheral Vein, Percutaneous Approach (ICD-10-PCS; 2017-10-31)
PROC: 0JBB0ZZ Excision of Perineum Subcutaneous Tissue and Fascia, Open Approach (ICD-10-PCS; 2017-10-31)
PROC: 0J950ZZ Drainage of Left Neck Subcutaneous Tissue and Fascia, Open Approach (ICD-10-PCS; 2017-11-05)
PROC: 0J940ZZ Drainage of Right Neck Subcutaneous Tissue and Fascia, Open Approach (ICD-10-PCS; 2017-11-05)
PROC: 0JB80ZZ Excision of Abdomen Subcutaneous Tissue and Fascia, Open Approach (ICD-10-PCS; principal; 2017-11-12 10:55)
DX: A41.9 Sepsis, unspecified organism (principal); E43 Unspecified severe protein-calorie malnutrition; L73.2 Hidradenitis suppurativa; F32.9 Major depressive disorder, single episode, unspecified; F41.9 Anxiety disorder, unspecified; E66.9 Obesity, unspecified; D64.9 Anemia, unspecified; G89.29 Other chronic pain; B95.62 Methicillin resistant Staphylococcus aureus infection as the cause of diseases classified elsewhere; Z88.1 Allergy status to other antibiotic agents; Z87.891 Personal history of nicotine dependence; Z88.0 Allergy status to penicillin; Z68.27 Body mass index [BMI] 27.0-27.9, adult; L02.11 Cutaneous abscess of neck; L02.214 Cutaneous abscess of groin; L02.414 Cutaneous abscess of left upper limb; L02.415 Cutaneous abscess of right lower limb; D47.3 Essential (hemorrhagic) thrombocythemia
CPT/HCPCS: 36415; 71045; 80048; 80053; 80202; 81001; 85025; 85610; 85730; 86886; 86900; 86901; 86920; 87040; 87070; 87075; 87081; 87086; 87186; 87205; 96365; 96375; 99285; J0692; J0696; J1170; J1956; J2001; J2175; J2250; J2270; J2704; J3010; J3370; J3490; J7030; J7060; P9016; Q0092